=== PATIENT | male | born 1985 ===

== ENCOUNTER 2024-07-14 05:38 | Emergency (ER) | payer OTHER ==
[2024-07-14] MEDS ORDERED: EPINEPHrine 1 MG/10 ML Abboject SYRINGE ONE (05:41)
[2024-07-14] MEDS ORDERED: Calcium Chloride 1 GM/10 ML Abboject SYRINGE ONE (05:41)
[2024-07-14] MEDS ORDERED: Dextrose 50% Abboject 50 ML SYRINGE ONE (05:41)
[2024-07-14] MEDS ORDERED: Lidocaine 2% PF 100 mg/5 ml Syringe ONE (05:41)
[2024-07-14] MEDS ORDERED: Sodium Bicarb 50 MEQ/50 ML Abboject 8.4% SYRINGE ONE (05:41)
== END 2024-07-14 05:54 | disposition expired ==
LOC: ERS 05:38 → EEVIPCON 05:38 → ERS 05:54
DX: I46.9 Cardiac arrest, cause unspecified (principal); E11.9 Type 2 diabetes mellitus without complications; I10 Essential (primary) hypertension; Z79.84 Long term (current) use of oral hypoglycemic drugs
CPT/HCPCS: 92950; J0171; J2003; J7999